=== PATIENT | male | born 1950 ===

== ENCOUNTER 2017-10-17 19:23 | Emergency (ER) | payer MEDICARE ==
--- NOTE | 2017-10-17 19:35 | ED ---
CPR HPI - General Stated Complaint: Cardiac Arrest Time Seen by Provider: 10/17/17 19:23 Source: EMS, RN notes reviewed Mode of arrival: EMS - History of Present Illness Initial Comments: This is a 67-year-old male with an unknown past medical history who was apparently found unresponsive by a passerby in a ditch or he was weed whacking. This unclear how long the patient was down before he was found EMS was called police department responded and CPR was started after their arrival initial call was at 1830 2 PM EMS arrived about 12 minutes later. ACLS protocol was started including intubation with a #8 ET tube and interosseous IV in the left humerus. Patient was placed on a Joseluis device and transported to the hospital for assessment. ACLS protocol was continued in transit the. The patient did arrive at 1920 1 PM he is found to be fixed and dilated bilaterally unresponsive no spontaneous pulses respiratory effort. No pulses. Patient was cyanotic from the upper chest to the face. MD Complaint: found unresponsive - Related Data Home Medications Medication Instructions Recorded Confirmed Unable To Assess [Unable to Assess] 10/17/17 10/17/17 Allergies Allergy/AdvReac Type Severity Reaction Status Date / Time No Known Allergies Allergy Verified 10/17/17 19:57 Review of Systems ROS Statement: Those systems with pertinent positive or pertinent negative responses have been documented in the HPI. ROS Other: All systems not noted in ROS Statement are negative. Limitations: ROS unobtainable due to patients medical condition General Exam - General Exam Comments Initial Comments: This is a well-developed well-nourished unresponsive male with CPR progress General appearance: other (Unresponsive) Head exam: Present: atraumatic Eye exam: Present: other (Face and dilated approximately 5 mm) ENT exam: Present: other (Never [address] some frothy bloody phlegm noted) Neck exam: Present: other Respiratory exam: Present: normal lung sounds bilaterally (With bag valve respiratory support) Cardiovascular Exam: Present: other (Pulseless with the Joseluis device turned off pulses are equal bilaterally with the Joseluis device turned on) GI/Abdominal exam: Present: soft, distended Rectal exam: Present: normal inspection exam: Present: normal inspection, other (The patient had apparent urinary incontinence) Extremities exam: Present: other (Interosseous IV noted in the proximal humerus on the left otherwise normal inspection) Back exam: Present: normal inspection Neurological exam: Present: other (Unresponsive) Psychiatric exam: Present: other (Unresponsive) Skin exam: Present: other (Pallor except for the ecchymosis from the shoulders up.) Course - Reevaluation(s) Reevaluation #1: 10/17/17 19:35 The recessive efforts were deemed to be futile the efforts were stopped the patient was pronounced at 19:25 PM. Reevaluation #2: 10/17/17 19:57 I did discuss the case with the patient's the patient apparently is been weed whacking all day he had no complaints of chest pain shortness of breath or other symptoms. Patient was a nonsmoker he was being treated for multiple myeloma for the past 5 years with low-dose chemotherapy. He had no recent illnesses and began complaining no chest pain or shortness of breath or other symptoms today prior to the event. He was outside for up to a half hour before he was found so is unclear exactly how long he was down before CPR was started patient's stated however did the CPR initially thought he was possibly already gone. Reevaluation #3: 10/17/17 20:25 I did discuss the case with Dr. king it 2000 p.m. I did discuss the case with the medical supervisor's at 2005 p.m. the patient body was released. Reevaluation #4: 10/17/17 20:25 I did discuss the results of my conversation with the above with the family members. Medical Decision Making - Medical Decision Making The patient had a prolonged CPR/ACLS endeavor to no avail. Patient was pronounced at 1920 5 PM. Disposition Clinical Impression: Sudden cardiac , Cardiac asystole Disposition: Is patient prescribed a controlled substance at d/c from ED?: No Referrals: Shay Champagne MD [Primary Care Provider] - 1-2 days Preliminary Cause of : Sudden cardiac , asystole
== END 2017-10-17 22:20 | disposition expired ==
LOC: EC 19:23
DX: I46.9 Cardiac arrest, cause unspecified (principal)
CPT/HCPCS: 92950; 99285